=== PATIENT | female | born 1995 | race African-American/Black ===

== ENCOUNTER 2017-03-24 19:46 | Emergency (ER) | payer OTHER ==
[2017-03-24 20:42] LABS: URINE SOURCE CLEAN CATCH
[2017-03-24 20:49] LABS: URINE APPEARANCE CLEAR; URINE BILIRUBIN NEG (NEG); URINE BLOOD 1+ (NEG); URINE COLOR DK YELLOW; URINE GLUCOSE NEG (NEG); URINE KETONE TRACE (NEG); URINE LEUKOCYTE ESTERASE TRACE (NEG); URINE NITRATE POS (NEG); URINE PROTEIN NEG (NEG); URINE SPECIFIC GRAVITY 1.026 (1.003-1.035)
[2017-03-24 20:52] LABS: CULTURE INDICATED? YES; URINE BACTERIA AUWI 4+ (NEGATIVE); URINE SQUAMOUS EPITHELIAL CELL OCC /[HPF]
[2017-03-28 09:19] LABS: CHLAMYDIA TRACH Not Detected (Not Detected); N GONOR Not Detected (Not Detected)
== END 2017-03-24 21:50 | disposition home or self-care (01) ==
LOC: CED 19:46 → CFTX 19:46
PROVIDERS: Nurse Practitioner Family
DX: N39.0 Urinary tract infection, site not specified (principal); N89.8 Other specified noninflammatory disorders of vagina; F32.9 Major depressive disorder, single episode, unspecified
CPT/HCPCS: 81003; 84703; 87086; 87088; 87186; 87491; 87591; 87808; 87905; 99284

== ENCOUNTER 2017-04-07 13:04 | Emergency (ER) | payer OTHER ==
[2017-04-07 14:26] LABS: ALBUMIN SERUM 4.4 g/dL (3.5-5.0); ALKALINE PHOSPHATASE 56 U/L (32-92); ALT (SGPT) 18 U/L (10-40); AST (SGOT) 20 U/L (10-42); BILIRUBIN, DIRECT 0.1 mg/dL (0.0-0.2); BILIRUBIN,INDIRECT 0.7 mg/dL (0.0-0.9); BILIRUBIN,TOTAL 0.8 mg/dL (0.2-2.0); BLOOD UREA NITROGEN 8 mg/dL (9-23); BUN/CREATININE RATIO 11.42; CALCIUM SERUM 9.2 mg/dL (8.4-10.2); CARBON DIOXIDE 23 mmol/L (22-31); CHLORIDE 106 mmol/L (100-111); CREATININE SERUM 0.7 mg/dL (0.6-1.4); GLOM FILT RATE Estimated 144.6 mL/min (>60); GLUCOSE FASTING 83 mg/dL (70-110); PROTEIN TOTAL SERUM 7.3 g/dL (6.0-8.3); SALICYLATE <4.0 mg/dL; SODIUM 138 mmol/L (135-145)
[2017-04-07 14:29] LABS: ACETAMINOPHEN <10 ug/mL
== END 2017-04-07 18:25 ==
LOC: CED 13:04
PROVIDERS: Emergency Medicine
DX: T39.1X2A Poisoning by 4-Aminophenol derivatives, intentional self-harm, initial encounter (principal); F17.200 Nicotine dependence, unspecified, uncomplicated; F32.9 Major depressive disorder, single episode, unspecified; F20.9 Schizophrenia, unspecified
CPT/HCPCS: 36415; 80048; 80076; 99285; G0480

== ENCOUNTER 2017-04-07 15:25 | Inpatient (IN) | payer OTHER ==
--- NOTE | ~2017-04-07 | HP ---
Unit #: [id number] #: [id number] Patient: NALLELY WOODWARD [id number] [facility] [place] [address] [id number] MR#: [id number] NAME: NALLELY WOODWARD. ROOM: P130 Age: 21 Sex: F Admission Date: 04/07/2017 : 1995 Attending Physician: Haim Fitzpatrick M.D. Admitting Physician: Haim Fitzpatrick M.D. Primary Care Physician: Primary Care Physician No HISTORY AND PHYSICAL HISTORY OF PRESENT ILLNESS Nallely is a 21 year old admitted to [address] [place] [address] with depression and after a suicide attempt with an overdose of steroids. She was treated in local emergency room, placed on a 72 hour hold and when medically stable transferred to [facility] for psychiatric care. PAST MEDICAL HISTORY Nothing significant. PAST SURGICAL HISTORY Nothing reported. ALLERGIES No known drug allergies. SOCIAL HISTORY She denies cigarettes, alcohol and illicit drug use. FAMILY HISTORY Medically noncontributory. REVIEW OF SYSTEMS She does not answer all questions appropriately. There are no reports of nausea, vomiting or diarrhea. She has had no cough or increased temperature. CURRENT MEDICATIONS 1. Desyrel 50 mg q.h.s. 2. Vistaril 25 mg t.i.d. 3. Cogentin 1 mg b.i.d. 4. Haldol 5 mg b.i.d. 5. Abilify 10 mg b.i.d. 6. Milk of Magnesia p.r.n. 7. Maalox p.r.n. 8. Tylenol p.r.n. 9. Nicotine patch 14 mg daily. PHYSICAL EXAMINATION GENERAL: Alert, well-nourished, in no apparent distress. VITAL SIGNS: Blood pressure 124/78, heart rate 80, respirations 16, temperature 98.6. WEIGHT: 167. HEIGHT: 5 feet 2 inches. Unit #: [id number] #: [id number] Patient: NALLELY WOODWARD SKIN: Warm and dry without rash or lesion. HEENT: Normocephalic. TMs not viewed. Oral and nasal passages clear. Conjunctivae clear. PERRLA. EOMs intact. NECK: Supple without lymphadenopathy or thyromegaly. HEART: Regular rate and rhythm without murmur. LUNGS: Clear. ABDOMEN: Soft, nontender. : Not done. EXTREMITIES: No evidence of cyanosis, clubbing or edema. Moves all without focal deficit. NEUROLOGICAL: Moves all extremities without focal deficit. Hand creative perfumer is equal and gait is normal. IMPRESSION Psychiatric admission. RECOMMENDATIONS PSYCHIATRIC: Per psychiatrist. MEDICAL: See no contraindication to participate in facility's activities. MEDICAL PROGNOSIS Good. MEDICAL CONDITION Stable. Dictated by... Laury Ramos P.A.-C. for Sofie Lanza/sarbjit TD: 04/08/2017 17:21 JOB #: [id number] HISTORY AND PHYSICAL Page 1 of 1 X Laury Ramos X HISTORY AND PHYSICAL
--- NOTE | ~2017-04-07 | PN ---
Unit #: [id number] #: [id number] Patient: NALLELY HILARIO [id number] [facility] [address] [place] [address] [id number] I MR#: [id number] NAME: NALLELY HILARIO. ROOM: P130 Age: 21 Sex: F Admission Date: 04/07/2017 : 1995 Attending Physician: Haim Fitzpatrick M.D. Admitting Physician: Haim Fitzpatrick M.D. Primary Care Physician: Primary Care Physician Linsey HARDEN NOTES DATE OF SERVICE: 04/08/2017 DISCUSSION Ms. Nallely Hilario is a 21-year-old female, seen on 04/08/2017. The patient interviewed, chart reviewed, and obtained information from nursing staff. The patient was compliant and cooperative. Mood was sad, dysphoric, flat, withdrawn. The patient was somewhat sleepy, unable to answer any question. REVIEW OF SYSTEMS Complete review of systems unremarkable. MENTAL STATUS EXAMINATION General appearance; the patient dressed in hospital attire. Attention span and concentration, poor. Speech, slow. Thought process; circumstantial, guarded, paranoid, sad, dysphoric. Recent and remote memory, poor. Insight and judgment, poor. DIAGNOSES 1. Psychosis, not otherwise specified. 2. Schizophrenia, chronic paranoid type. 3. Cannabis abuse, moderate. ASSESSMENT/PLAN Advised to continue with current combination of Desyrel, Vistaril, Cogentin, Haldol, Abilify. Plan to stabilize the patient and consider injectable long-acting medication Abilify once the patient shows improvement. Dictated by... Sofie Lopez/laura TD: 04/09/2017 01:40 JOB #: [id number] Unit #: [id number] #: [id number] Patient: NALLELY HILARIO JACKIE PROGRESS NOTES Page 1 of 1 X Haim Fitzpatrick MD PROGRESS NOTE
--- NOTE | ~2017-04-07 | PA ---
Unit #: [id number] #: [id number] Patient: NALLELY HILARIO [id number] [facility] [address] [place] [address] [id number] I MR#: [id number] NAME: NALLELY HILARIO. ROOM: P130 Age: 21 Sex: F Admission Date: 04/07/2017 : 1995 Date of Assessment: Attending Physician: Haim Fitzpatrick M.D. Admitting Physician: Haim Fitzpatrick M.D. Primary Care Physician: Primary Care Physician No PSYCHIATRIC ASSESSMENT INFORMANTS The patient reliability, poor informant and chart reliability, good. CHIEF COMPLAINT Aggression and psychosis. HISTORY OF PRESENT ILLNESS Ms. Nallely Hilario is a 21-year-old female, seen in room 130, on . The patient presented at [facility] after taking an overdose of Lortab as a suicide attempt. The patient reported hearing voices, a male voice telling her everyone in general, so named individual, and to harm herself. The patient reported these voices started about 2 weeks ago. The patient reported responding to internal stimuli and having conversation with the individuals not in the room. The patient denied use of substances, but tested positive for marijuana. The patient reported anxious, nervous, sad, and depressed. Currently, unemployed. The patient has a 12th grade of education. Lives by herself. The patient sleeping 2 hours. Poor appetite. The patient currently on no psychotropic medication. Denied use of any drugs or alcohol. Needing inpatient admission at this time for psychiatric stabilization. PAST PSYCHIATRIC HISTORY Unknown for any history of any previous treatment. FAMILY HISTORY AND SOCIAL HISTORY The patient has a poor support system. Lives by herself. No known history of any abuse, but history of marijuana abuse. MEDICAL HISTORY Unremarkable for any chronic medical illness. Musculoskeletal; muscle strength and tone, no atrophy or abnormal movement. Gait normal. MEDICATION HISTORY None. ALLERGIES No known drug allergies. SUBSTANCE ABUSE HISTORY The patient tested positive for marijuana. REVIEW OF SYSTEMS HEENT: Eyes, clear. Ears, nose, mouth, and throat; clear. Unit #: [id number] #: [id number] Patient: NALLELY HILARIO CARDIOVASCULAR: Unremarkable. RESPIRATORY: Unremarkable. GI: Unremarkable. : Unremarkable. SKIN: Unremarkable. LYMPH NODE: Unremarkable. NEUROLOGIC: Unremarkable. ENDOCRINE: Unremarkable. HEMATOLOGIC: Unremarkable. ALLERGIC/IMMUNOLOGIC: Unremarkable. MUSCULOSKELETAL: Muscle strength and tone, no atrophy or abnormal movement. Gait normal. MENTAL STATUS EXAMINATION CONSTITUTIONAL: Measurement of vital signs; temperature 97.8, heart rate 89, respiratory rate 16, oxygen saturation 98%, and blood pressure 125/78. Height 5 feet 2 inches and weight 167 pounds. GENERAL APPEARANCE: The patient dressed casually in hospital attire. No facial deformity noted. MUSCULOSKELETAL: Please see above. PSYCHIATRIC EXAMINATION Description of speech, slow. Description of thought process, circumstantial. Description of association, guarded and paranoid. Description of psychotic thinking; guarded, paranoid, attending to internal stimuli, and suicidal ideation. Description of the patient's judgment: Concerning everyday activity, poor. Social situation, poor. Concerning psychiatric condition, poor. Complete mental status examination; orientation in place and self. Recent and remote memory, poor. Attention span and concentration, poor. Language, fair. Fund of knowledge, fair. Vocabulary, poor. Mood and affect, sad and dysphoric. Insight and judgment, fair to poor. ASSETS AND LIABILITIES Assets, the patient is articulate and able to take care of her ADL. Liability; history of depression, psychosis, and cannabis abuse. ADMITTING DIAGNOSES Psychiatric: Psychosis, not otherwise specified, F29.0; schizophrenia, chronic paranoid type, F20.0; and cannabis abuse, moderate, F12.20. Secondary diagnosis: Deferred. Medical diagnosis: None. Stressors: Psychosocial stressor. PSYCHIATRIC PLAN AND TREATMENT GOAL AND DISCHARGE PLAN 1. Advised to admit the patient on the inpatient unit. Provide safe, supportive, and structured environment. 2. Ordered labs; CBC, CMP, UA, and UDS. 3. Precaution for psychosis, aggression, and self-harm. 4. The patient to attend all the programing on the inpatient unit, group therapy, individual therapy, and chemical dependency group. 5. Recommending the patient to start with Desyrel 50 mg at bedtime, Vistaril 25 mg t.i.d., Cogentin 1 mg b.i.d., and haloperidol 5 mg b.i.d. The patient became agitated and was given Haldol 10 mg, Cogentin 1 mg, and Unit #: [id number] #: [id number] Patient: NALLELY HILARIO Ativan 1 mg intramuscular, which was effective. TREATMENT GOAL To attain euthymic mood, gain insight into her problem, learn coping skills, and control psychotic symptom. DISCHARGE PLAN Plan to stabilize the patient and consider followup in outpatient program. ESTIMATED LENGTH OF STAY 5 days. Dictated by... Haim Fitzpatrick M.D. ETHAN/laura TD: 04/08/2017 17:28 JOB #: [id number] PSYCHIATRIC ASSESSMENT Page 1 of 1 X Haim Fitzpatrick MD X PSYCHIATRIC ASSESSMENT
--- NOTE | ~2017-04-07 | DS ---
Unit #: [id number] #: [id number] Patient: NALLELY WOODWARD [id number] [facility] [address] [place] [address] [id number] I MR#: [id number] NAME: NALLELY WOODWARD. ROOM: P130 Age: 21 Sex: F Admission Date: 04/07/2017 : 1995 Discharge Date: 04/11/2017 Attending Physician: Haim Fitzpatrick M.D. Primary Care Physician: Primary Care Physician No DISCHARGE SUMMARY REASON FOR ADMISSION Psychosis. LABORATORY DATA LABORATORY RESULTS: Unremarkable. HOSPITAL COURSE The patient was admitted to inpatient unit on 04/07/2017 and discharged on 04/11/2017. The patient was treated on the inpatient unit with group therapy, individual therapy, medication management, and chemical dependency group. The patient's test was negative. The patient was responsive to treatment, showed improvement and wanted to be discharged. Subsequently, the patient was discharged with a plan to follow up in outpatient program. At the time of discharge, the patient was not suicidal or homicidal. DISCHARGE MEDICATIONS 1. Abilify 10 mg b.i.d. for psychosis. 2. Cogentin 1 mg b.i.d. for EPS symptom. 3. Trazodone 50 mg at bedtime for sleep. 4. Vistaril 25 mg t.i.d. for anxiety. DISCHARGE DIAGNOSES PSYCHIATRIC: Psychosis, not otherwise specified, F29.0; schizophrenia, chronic paranoid type, F20.0; cannabis abuse, moderate, F12.20. Secondary diagnosis: Deferred. Medical diagnosis: None. Stressors: Psychosocial stressors. DISCHARGE INSTRUCTIONS The patient is to follow up in outpatient clinic as per social science professor. CONDITION ON DISCHARGE The patient was pleasant and cooperative. Denied any psychotic symptom or any suicidal ideation. PROGNOSIS Guarded. DIET AND ACTIVITY Unit #: [id number] #: [id number] Patient: NALLELY WOODWARD As tolerated. Dictated by... Haim Fitzpatrick M.D. SZC/guerdal TD: 04/11/2017 13:15 JOB #: [id number] DISCHARGE SUMMARY Page 1 of 1 X Haim Fitzpatrick MD DISCHARGE SUMMARY
--- NOTE | ~2017-04-07 | PN ---
Unit #: [id number] #: [id number] Patient: NALLELY WOODWARD [id number] [facility] [address] [place] [address] [id number] I MR#: [id number] NAME: NALLELY WOODWARD. ROOM: P130 Age: 21 Sex: F Admission Date: 04/07/2017 : 1995 Attending Physician: Haim Fitzpatrick M.D. Admitting Physician: Haim Fitzpatrick M.D. Primary Care Physician: Primary Care Physician Linsey MEJIA PROGRESS NOTES DATE 04/10/2017 DISCUSSION Ms. Woodward is a 21-year-old female seen on 04/10/2017. Patient continues to be isolative, guarded, flat affect, guarded, paranoid. Answered questions in short sentences. Vital signs 98.1, 81, 15, 118/72. According to staff report, patient thought process disorganized, paranoid, guarded, isolative, argumentative, threatening, yelling. Complete review of system unremarkable. MENTAL STATUS EXAMINATION General appearance, patient dressed in hospital attire. Patient was loud, slamming door, irritable, mood lability, refusing medication. Attention span, concentration poor. Mood and affect labile. Speech monotone. Thought process concrete. Association, guarded, paranoid but denied any thoughts of harming self or others. Recent and remote memory poor. Insight and judgement poor. DIAGNOSES 1. Psychosis NOS. 2. Schizophrenia, chronic paranoid type. ASSESSMENT/PLAN Advised to continue encourage patient to take medication. Patient to continue with the inpatient programming. If needed, consider further adjustment of medication. Dictated by... Sofie Lopez/sarbjit TD: 04/10/2017 22:10 JOB #: [id number] Unit #: [id number] #: [id number] Patient: NALLELY WOODWARD [facility] PROGRESS NOTES Page 1 of 1 X Haim Fitzpatrick MD X PROGRESS NOTE
--- NOTE | ~2017-04-07 | PN ---
Unit #: [id number] #: [id number] Patient: NALLELY HILARIO [id number] [facility] [address] [place] [address] [id number] MR#: [id number] NAME: NALLELY HILARIO. ROOM: P130 Age: 21 Sex: F Admission Date: 04/07/2017 : 1995 Attending Physician: Haim Fitzpatrick M.D. Admitting Physician: Haim Fitzpatrick M.D. Primary Care Physician: Primary Care Physician Linsey MEJIA PROGRESS NOTES DATE OF SERVICE 04/09/2017 DISCUSSION Ms. Nallely Hilario is a 21-year-old female seen on 04/09/2017. The patient continues to be isolative, guarded, paranoid. The patient was cooperative. Tolerating medication fairly well. The patient did not show any aggressive behavior, but guarded, paranoid. Answered questions in short sentences. Seclusive, isolative, disorganized behavior, paranoid, argumentative, threatening, yelling. Complete Review of Systems: Unremarkable. MENTAL STATUS EXAMINATION General Appearance: The patient dressed casually. Attention span, concentration: Poor. Orientation in self. Mood and affect labile. Speech minimal. Thought process: Circumstantial, guarded, paranoid. Recent and remote memory: Poor. Guarded. Attending to internal stimuli. Insight and judgment: Poor. DIAGNOSIS Schizophrenia, chronic, paranoid type. ASSESSMENT/PLAN Advised to continue with current combination of medication, Desyrel 50 mg at bedtime, Vistaril 25 mg 3 times a day, Cogentin 1 mg twice daily, haloperidol 5 mg twice daily, Abilify 10 mg b.i.d. with a plan to consider injectable if needed. Dictated by... Sofie Lopez/bety TD: 04/10/2017 08:35 JOB #: [id number] Unit #: [id number] #: [id number] Patient: NALLELY HILARIO [facility] PROGRESS NOTES Page 1 of 1 X Haim Fitzpatrick MD X PROGRESS NOTE
[2017-04-08 09:59] LABS: BASOPHIL% 0.4 % (0-2.5); DIFF IND NO; EOSINOPHIL# 0.1 X10e3 (0-0.7); EOSINOPHIL% 1.9 % (0.0-7.0); HEMATOCRIT 42.7 % (35.0-45.0); HEMOGLOBIN 13.7 gm/dL (12.0-16.0); LYMPHOCYTE# 3.2 X10e3 (1.0-3.5); LYMPHOCYTE% 49.4 % (17.0-45.0); MEAN CELL VOLUME 83.8 FL (83-96); MEAN CORPUSCULAR HEMOGLOBIN 26.9 PG (28-34); MEAN CORPUSCULAR HGB CONC 32.2 g/dL (30-36); MEAN PLATELET VOLUME 7.2 FL (6.5-11.5); MONOCYTE# 0.6 X10e3 (0-1.0); MONOCYTE% 9.9 % (3.0-12.0); NEUTROPHIL# 2.5 X10e3 (1.5-7.1); NEUTROPHIL% 38.4 % (40-75); PLATELET COUNT 326 X10e3 (140-420); RED CELL DISTRIBUTION WIDTH 14.2 % (11.0-15.5); WHITE BLOOD COUNT 6.5 X10e3 (4.0-10.5)
[2017-04-08 10:25] LABS: BILIRUBIN,TOTAL 1.1 mg/dL (0.2-2.0); BUN/CREATININE RATIO 11.25; CALCIUM SERUM 9.8 mg/dL (8.4-10.2); CREATININE SERUM 0.8 mg/dL (0.6-1.4); GLOM FILT RATE Estimated 123.1 mL/min (>60); POTASSIUM 4.7 mmol/L (3.5-5.1)
== END 2017-04-11 09:44 | disposition home or self-care (01) | DRG 885 ==
LOC: P1S 18:55
PROVIDERS: Psychiatry & Neurology Psychiatry
DX: F29 Unspecified psychosis not due to a substance or known physiological condition (principal); F20.0 Paranoid schizophrenia; F12.20 Cannabis dependence, uncomplicated; T38.0X2D Poisoning by glucocorticoids and synthetic analogues, intentional self-harm, subsequent encounter
CPT/HCPCS: 80053; 84703; 85025; J0515; J1630; J2060

== ENCOUNTER 2017-04-13 22:20 | Emergency (ER) | payer OTHER | END 2017-04-14 00:01 | disposition left against medical advice (07) | LOC: CED 22:20 | DX: Z53.21 Procedure and treatment not carried out due to patient leaving prior to being seen by health care provider (principal) | CPT/HCPCS: 90715 ==

== ENCOUNTER 2017-04-14 10:11 | Emergency (ER) | payer OTHER ==
--- NOTE | ~2017-04-14 | CR109 ---
[facility] A Service of [facility] & [facility] RADIOLOGY TEXT RESULTS PATIENT: NALLELY WOODWARD LOCATION: CFTX : [birth year] UNIT #: [id number] AGE: [address]: Neda Lester SEX: F ORDER DR: [id number] [facility] [address] [facility]. [place], [place] [address] [id number] MR#: [id number] Acc #: [id number] NAME: NALLELY WOODWARD. : 1995 SEX: F STUDY DATE/TIME: 04/14/2017 10:43 UNIT: [facility] ROOM: STUDY DESCRIPTION: CR Finger 2 View 2nd Rt Attending Physician: Neda Lester Pa-C Ordering Physician: Ed Doctor [id number] [facility] Primary Care Physician: Primary Care Physician No MEDICAL IMAGING REPORT This report is preliminary unless electronic signature is present EXAM Right index finger HISTORY Laceration to the distal finger from a knife today. TECHNIQUE 3 views of the finger were obtained. FINDINGS Three views of the finger show no evidence of fracture, dislocation or radiodense foreign body. No acute bony abnormalities are seen. Dictated by... Ludwin Zhao M.D. THIS IS AN ELECTRONICALLY VERIFIED REPORT Ludwin Zhoa M.D. at 04/14/2017 1:27 PM Josefina TD: 04/14/2017 12:26 JOB #: [id number] MEDICAL IMAGING REPORT Page 1 of 1 COPY
== END 2017-04-14 11:30 | disposition home or self-care (01) ==
LOC: CED 10:11 → CFTX 10:11
DX: S61.210A Laceration without foreign body of right index finger without damage to nail, initial encounter (principal); F31.9 Bipolar disorder, unspecified; F43.10 Post-traumatic stress disorder, unspecified; F20.9 Schizophrenia, unspecified; F17.200 Nicotine dependence, unspecified, uncomplicated; W26.0XXA Contact with knife, initial encounter; Y92.009 Unspecified place in unspecified non-institutional (private) residence as the place of occurrence of the external cause
CPT/HCPCS: 12001; 73140; 90471; 90715; 99283